=== PATIENT | male | born 1965 | race Caucasian/White ===

== ENCOUNTER 2024-11-30 13:07 | Emergency (ER) | payer SELFPAY ==
[2024-11-30 13:23] VITALS: BP 129/78; PULSE 77; RESP 18; TEMP 98.2; BMI 28.3
[2024-11-30] MEDS ORDERED: diphenhydrAMINE HCL 25 MG CAPSULE (FP) PO ONE (13:52)
[2024-11-30] MEDS ORDERED: IBUPROFEN 400 MG TABLET (FP) PO ONE (13:52)
[2024-11-30] MEDS: IBUPROFEN 400 MG TABLET (FP) PO ONE (13:56)
[2024-11-30] MEDS: diphenhydrAMINE HCL 25 MG CAPSULE (FP) PO ONE (13:56)
== END 2024-11-30 13:57 | disposition home or self-care (01) ==
LOC: FER 13:07
DX: M79.89 Other specified soft tissue disorders (principal); T63.441A Toxic effect of venom of bees, accidental (unintentional), initial encounter; X58.XXXA Exposure to other specified factors, initial encounter
CPT/HCPCS: 99283-25